=== PATIENT | female | born 1955 | race Caucasian/White ===

== ENCOUNTER 2018-08-10 13:51 | Inpatient (IN) | payer OTHER ==
[~2018-08-10] VITALS: Ht 165.1 cm; Wt 79.0 kg
[2018-08-10] VITALS (7 sets, daily range): BP systolic 117–136; BP diastolic 60–84
[2018-08-10] MEDS ORDERED: ASPIRIN 81 MG TABLET CHEW PO ONE (14:30)
[2018-08-10] MEDS ORDERED: SODIUM CHLORIDE FLUSH 10ML SYR IVF ONE (14:30)
[2018-08-10 15:09] LABS: ALANINE AMINOTRANSFERASE 15 U/L (12-78); ALBUMIN 3.5 g/dL (3.4-5.0); ANION GAP 8 mmol/L (5-15); CALCIUM 8.3 mg/dL (8.5-10.1); CHLORIDE 108 mmol/L (98-107); CREATININE 0.62 mg/dL (0.55-1.02)
[2018-08-10 15:10] LABS: MEAN CORPUSCULAR HEMOGLOBIN 20.9 pg (27.0-34.8); MEAN CORPUSCULAR HGB CONC 30.5 g/dL (32.4-35.8); MEAN CORPUSCULAR VOLUME 68.4 fL (80-100); MEAN PLATELET VOLUME 8.2 fL (7.4-10.4); PLATELET COUNT 313 x10^3/uL (130-400); RED BLOOD COUNT 2.78 x10^6/uL (3.82-5.3)
--- NOTE | 2018-08-10 15:10 | NUR ---
Pt presents to ED with c/o worsening SOB especially with exceration over the last few weeks. PT states she fell right before Thanksgiving and hit the left side of her rib cage. Stated she had thought she broke some ribs, but with the SOB getting worse she became more concerned. Pt denies n/v and bloody/dark stools. States hx of anemia, however never lower than roughly H/H 8. Pt states for pain she was taking naproxen for about 2 weeks until her stomach started to get upset. States she hasnt taken in about 1 week. 2 IVs started. Pt placed on phototypesetting equipment monitor, cont. pulse ox, and bp. POC discussed. Will continue to monitor.
[2018-08-10 15:13] LABS: ALKALINE PHOSPHATASE 78 U/L (45-117); BILIRUBIN,TOTAL 0.3 mg/dL (0.2-1.0); MD YES; TOTAL PROTEIN 6.4 g/dL (6.4-8.2); TROPONIN I < 0.015 ng/mL (0.000-0.045)
[2018-08-10] MEDS ORDERED: PANTOPRAZOLE 40 MG IV IVPush ONE (15:30)
[2018-08-10 15:56] LABS: INTERNATIONAL NORMALIZED RATIO 0.99 (0.93-1.1); PROTHROMBIN TIME 10.5 Seconds (9.6-11.5)
[2018-08-10] MEDS ORDERED: PANTOPRAZOLE 80 MG in SODIUM CHLORIDE 0.9% 100 ML IV SCH ×2 (16:00→18:30)
[2018-08-10 16:03] LABS: BASOS#(MANUAL) 0.05 x10^3/uL (0-0.1); BASOS% (MANUAL) 1 % (0-1); EOS#(MANUAL) 0.05 x10^3/uL (0.0-0.4); EOS% (MANUAL) 1 % (1-7); LYMPH#(MANUAL) 0.61 x10^3/uL (1-3.4); LYMPHS% (MANUAL) 13 % (22-44); MONOS#(MANUAL) 0.38 x10^3/uL (0.3-2.7); MONOS% (MANUAL) 8 % (2-9); SEG#(MANUAL) 3.62 x10^3/uL (1.8-6.8); SEGS% (MANUAL) 77 % (42-75)
[2018-08-10 16:06] LABS: HYPOCHROMIA 2+; MICROCYTOSIS 2+; OVALOCYTES 1+; POLYCHROMASIA 1+
[2018-08-10 16:07] LABS: <PLATELET ESTIMATE> ADEQUATE; <PLT MORPHOLOGY> NORMAL PLT MORPH; STOMATOCYTES 1+
--- NOTE | 2018-08-10 16:15 | NUR ---
Hospitalist at bedside.
[2018-08-10] MEDS ORDERED: ACETAMINOPHEN 325 MG TABLET PO ONE (16:30)
[2018-08-10] MEDS ORDERED: ONDANSETRON 2MG/ML, 2ML IVPush PRN (16:30)
[2018-08-10] MEDS ORDERED: ACETAMINOPHEN 325 MG TABLET PO PRN (16:30)
[2018-08-10] MEDS ORDERED: ENALAPRILAT 1.25 MG/ML, 2ML IVPush PRN (16:30)
--- NOTE | 2018-08-10 16:46 | NUR ---
1st unit of blood transfusion started. pt educated on s/s of transfusion reaction.
[2018-08-10] MEDS ORDERED: PANTOPRAZOLE 40 MG IV ONE (16:51)
--- NOTE | 2018-08-10 16:59 | NUR ---
Pt tolerating infusion at this time well. No complaints. POC discussed. Will continue to monitor.
[2018-08-10] MEDS ORDERED: LORazepam 2 MG/ML, 1ML IVPush PRN (17:00)
--- NOTE | 2018-08-10 17:07 | NUR ---
Iv infusion started per oct. rights verified prior. 3 p's addressed.
--- NOTE | 2018-08-10 17:42 | NUR ---
KAROL. Pt is talking on her phone with family member. Blood is infusing without problems.
--- NOTE | 2018-08-10 18:02 | NUR ---
CALLED REPORT TO THE FLOOR RN. OK FOR PT TO GO TO THE FLOOR NOW.
[2018-08-10] MEDS ORDERED: DIPHENHYDRAMINE 50 MG/ML, 1ML IVPush ONE (18:30)
[2018-08-10] MEDS ORDERED: ESCI20TA PO (19:13)
[2018-08-10] MEDS: NS + 20MEQ KCL 1,000 ML IV SCH (20:39)
[2018-08-10] MEDS ORDERED: CITALOPRAM 20 MG TABLET PO SCH (21:00)
[2018-08-11 00:08] VITALS: BP 119/71
[2018-08-11 02:35] VITALS: BP 138/87
[2018-08-11 05:30] LABS: BASOPHILS # (AUTO) 0.01 x10^3/uL (0-0.1); BASOPHILS % (AUTO) 0 % (0-1); EOSINOPHILS # (AUTO) 0.27 x10^3/uL (0-0.4); EOSINOPHILS % (AUTO) 5 % (1-7); LYMPHOCYTES # (AUTO) 1.41 x10^3/uL (1-3.4); LYMPHOCYTES % (AUTO) 25 % (22-44); MD NO; MEAN CORPUSCULAR HEMOGLOBIN 23.5 pg (27.0-34.8); MEAN CORPUSCULAR VOLUME 73.4 fL (80-100); MONOCYTES # (AUTO) 0.57 x10^3/uL (0.2-0.8); MONOCYTES % (AUTO) 10 % (2-9); NEUTROPHILS # (AUTO) 3.33 x10^3/uL (1.8-6.8); NEUTROPHILS % (AUTO) 60 % (42-75); PLATELET COUNT 262 x10^3/uL (130-400); RED BLOOD COUNT 3.43 x10^6/uL (3.82-5.3); RED CELL DISTRIBUTION WIDTH 20.5 % (9.6-15.2)
[2018-08-11 05:36] LABS: ANION GAP 7 mmol/L (5-15); CALCIUM 8.4 mg/dL (8.5-10.1); CHLORIDE 109 mmol/L (98-107); CREATININE 0.65 mg/dL (0.55-1.02)
[2018-08-11 07:15] VITALS: BP 116/73
[2018-08-11] MEDS ORDERED: SIMETHICONE DROPS 40 MG/0.6 ML BOTTLE ONE (07:51)
[2018-08-11] MEDS ORDERED: MIDAZOLAM 1 MG/ML, 5ML ONE (08:37)
[2018-08-11] MEDS ORDERED: FENTANYL PF 100 MCG/2ML ONE (08:37)
[2018-08-11] MEDS: NS + 20MEQ KCL 1,000 ML IV SCH (11:11)
[2018-08-11] MEDS ORDERED: PANT40TA3 PO (13:03)
== END 2018-08-11 13:58 | disposition home or self-care (01) | DRG 378 ==
LOC: ED 15:12 → EDIP 15:51 → 4WST 18:19 → DCLOUNGE 08-11 13:40
PROVIDERS: ADMIT Hospitalist; ATTEND Hospitalist
PROC: 30233N1 Transfusion of Nonautologous Red Blood Cells into Peripheral Vein, Percutaneous Approach (ICD-10-PCS; principal; 2018-08-10)
DX: K92.1 Melena (principal); S22.42XA Multiple fractures of ribs, left side, initial encounter for closed fracture; D62 Acute posthemorrhagic anemia; R73.9 Hyperglycemia, unspecified; F41.0 Panic disorder [episodic paroxysmal anxiety]; W01.0XXA Fall on same level from slipping, tripping and stumbling without subsequent striking against object, initial encounter; Y93.01 Activity, walking, marching and hiking; F41.1 Generalized anxiety disorder; T39.395A Adverse effect of other nonsteroidal anti-inflammatory drugs [NSAID], initial encounter; Y92.030 Kitchen in apartment as the place of occurrence of the external cause; Y99.8 Other external cause status; Z82.49 Family history of ischemic heart disease and other diseases of the circulatory system; Z87.891 Personal history of nicotine dependence; Z84.1 Family history of disorders of kidney and ureter
CPT/HCPCS: 36415; 80048; 80053; 84484; 85014; 85018; 85025; 85610; 85730; 86850; 86900; 86923; 88305; 93005; 99152; 99153; G0378; J2250; J3010; J3480; C9113; P9016